=== PATIENT | male | born 1970 | race Caucasian/White ===

== ENCOUNTER 2016-05-04 18:49 | Emergency (ER) | payer BC, OTHER ==
[2016-05-04] MEDS ORDERED: Proparacaine 0.5% Ophth Soln 15 ML Bottle ONE (18:51)
[2016-05-04] MEDS ORDERED: Proparacaine 0.5% Ophth Soln 15 ML Bottle EYELF ONE (18:52)
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
[2016-05-04 19:40] VITALS: BP 162/80
== END 2016-05-04 19:42 | disposition other institution (70) ==
LOC: MW.ED 18:49
DX: H21.02 Hyphema, left eye (principal); S05.8X2A Other injuries of left eye and orbit, initial encounter; I10 Essential (primary) hypertension; Z79.899 Other long term (current) drug therapy; W21.09XA Struck by other hit or thrown ball, initial encounter
CPT/HCPCS: 99282